=== PATIENT | male | born 1935 | race Caucasian/White ===

== ENCOUNTER 2016-08-20 17:06 | Emergency (ER) | payer MEDICARE ==
--- NOTE | 2016-08-20 18:09 | RAD ---
HISTORY: Shortness of breath COMPARISONS: September 16, 2013 VIEWS: 2: Frontal dual-energy and lateral views of the chest. FINDINGS: CARDIOMEDIASTINAL SILHOUETTE: The cardiomediastinal silhouette is normal. AZUL: The azul are normal. PLEURA: The costophrenic angles are sharp. No pleural abnormalities are noted. LUNG PARENCHYMA: There is hyperinflation with flattening of the diaphragm and expansion of the AP diameter of the chest. ABDOMEN: The upper abdomen is clear. There is no subphrenic gas. BONES AND SOFT TISSUES: No bone or soft tissue abnormalities are noted. OTHER: None. IMPRESSION: HYPERINFLATION, CONSISTENT WITH COPD. NO ACTIVE CARDIOPULMONARY DISEASE.
[2016-08-20 18:28] LABS: Hematocrit 44 % (42-52); Hemoglobin 14.5 g/dl (14.0-18.0); Mean Corpuscular HGB Conc 33 g/dl (31-36); Mean Corpuscular Hemoglobin 30 pg (27-31); Mean Corpuscular Volume 92 fL (80-94); Mean Platelet Volume 8 um3 (7.4-10.4); Red Blood Count 4.81 10^6/ul (4.0-5.4); Red Cell Distribution Width 14 % (10.5-15); White Blood Count 7.5 10^3/ul (3.5-10.8)
[2016-08-20 18:42] LABS: Albumin 4.2 g/dL (3.2-5.2); BUN/Creatinine Ratio 15.7 (8-20); EGFR African American 40.3 (>60); EGFR Non-African American 31.3 (>60); Globulin 3.7 g/dL (2-4); Potassium 4.6 mmol/L (3.5-5.0); Total Bilirubin 0.6 mg/dL (0.2-1.0); Total Protein 7.9 g/dL (6.4-8.9)
[2016-08-20 18:43] LABS: Troponin I 0.01 ng/mL (<0.04)
[2016-08-20] MEDS ORDERED: methylPREDNISolone 125 MG* 2 ML VIAL IV ONE (18:44)
[2016-08-20] MEDS ORDERED: Albuterol/Ipratropium NEB.SOL* Albuterol 2.5 MG/Ipratropium 0.5 MG 3 ML INH ONE (18:44)
[2016-08-20] MEDS ORDERED: Clarithromycin TAB* 500 MG PO ONE ×2 (20:55→20:56)
[2016-08-20 21:02] VITALS: BP 152/67
--- NOTE | 2016-08-20 22:05 | ED ---
Ella Howard Erika, scribed for Enrique Scales MD on 08/20/16 at 1743 . Shortness of Breath - HPI Summary HPI Summary: Patient is an 81-year-old male presenting to the ED with a CC of SOB. Patient reports chronic SOB, but states he has been more SOB in the past 2 days. Pt reports he has been taking Albuterol q4h for the past 2 days, which is more frequent than usual. Albuterol has been helping symptoms. Pt also took 1 puff of his asmanex inhaler yesterday and today, which did not seem to affect symptoms. Pt reports infrequent productive cough, but denies known fever. Hx asthma, COPD. Pt also had 2 stents placed last March, and breathing improved afterward. - History of Current Complaint Chief Complaint: EDShortnessOfBreath Time Seen by Provider: 08/20/16 17:14 Hx Obtained From: Patient, Family/Material Flow Analyst - Onset/Duration: Gradual Onset, Lasting Days - 2 days, Still Present Timing: Constant Current Severity: Moderate Dyspnea At: Rest Alleviating Factors: Bronchodilators Associated Signs & Symptoms: Cough (Productive) - Allergy/Home Medications Allergies/Adverse Reactions: Allergies Allergy/AdvReac Type Severity Reaction Status Date / Time No Known Allergies Allergy Verified 08/20/16 17:52 PMH/Surg Hx/FS Hx/Imm Hx Cardiovascular History: Reports: Hx Coronary Artery Disease Respiratory History: Reports: Hx Asthma, Hx Chronic Obstructive Pulmonary Disease (COPD) - Surgical History Surgery Procedure, Year, and Place: Cardiac stent Infectious Disease History: No Infectious Disease History: Denies: Traveled Outside the [place] in Last 30 Days - Family History Known Family History: Positive: Other - Colon [place] - Social History Occupation: Retired Lives: With Family Alcohol Use: Rare Hx Substance Use: No Substance Use Type: Reports: None Hx Tobacco Use: Yes Smoking Status (MU): Former Smoker Review of Systems Negative: Fever Positive: Shortness Of Breath, Cough Negative: Edema All Other Systems Reviewed And Are Negative: Yes Physical Exam Triage Information Reviewed: Yes Vital Signs On Initial Exam: Initial Vitals Temp Pulse Resp BP Pulse Ox 97.6 F 94 22 153/68 100 08/20/16 17:09 08/20/16 17:09 08/20/16 17:09 08/20/16 17:09 08/20/16 17:09 Vital Signs Reviewed: Yes Appearance: Positive: Well-Appearing, No Pain Distress Skin: Positive: Warm, Skin Color Reflects Adequate Perfusion, Dry Head/Face: Positive: Normal Head/Face Inspection Eyes: Positive: Normal ENT: Positive: Normal ENT inspection Neck: Positive: Supple, Nontender Respiratory/Lung Sounds: Positive: Breath Sounds Present, Wheezes - Diffuse expiratory Cardiovascular: Positive: RRR Abdomen Description: Positive: Nontender, Soft Bowel Sounds: Positive: Present Musculoskeletal: Positive: Normal. Negative: Edema Left, Edema Right Neurological: Positive: Normal Psychiatric: Positive: Affect/Mood Appropriate - Dewey Coma Scale Coma Scale Total: 15 Diagnostics - Vital Signs Vital Signs Temp Pulse Resp BP Pulse Ox 08/20/16 17:09 97.6 F 94 22 153/68 100 - Laboratory Lab Results: Lab Results 08/20/16 08/20/16 08/20/16 Range/Units 18:15 18:15 18:15 WBC 7.5 (3.5-10.8) 10^3/ul RBC 4.81 (4.0-5.4) 10^6/ul Hgb 14.5 (14.0-18.0) g/dl Hct 44 (42-52) % MCV 92 (80-94) fL MCH 30 (27-31) pg MCHC 33 (31-36) g/dl RDW 14 (10.5-15) % Plt Count 213 (150-450) 10^3/ul MPV 8 (7.4-10.4) um3 Neut % (Auto) 70.6 (38-83) % Lymph % (Auto) 11.6 L (25-47) % Lincoln % (Auto) 8.3 (1-9) % Eos % (Auto) 7.6 H (0-6) % Baso % (Auto) 1.9 (0-2) % Absolute Neuts (auto) 5.3 (1.5-7.7) 10^3/ul Absolute Lymphs (auto) 0.9 L (1.0-4.8) 10^3/ul Absolute Monos (auto) 0.6 (0-0.8) 10^3/ul Absolute Eos (auto) 0.6 (0-0.6) 10^3/ul Absolute Basos (auto) 0.1 (0-0.2) 10^3/ul Absolute Nucleated RBC 0.01 10^3/ul Nucleated RBC % 0.1 Sodium 136 (133-145) mmol/L Potassium 4.6 (3.5-5.0) mmol/L Chloride 103 (101-111) mmol/L Carbon Dioxide 26 (22-32) mmol/L Anion Gap 7 (2-11) mmol/L BUN 32 H (6-24) mg/dL Creatinine 2.04 H (0.67-1.17) mg/dL Est GFR ( Amer) 40.3 (>60) Est GFR (Non-Af Amer) 31.3 (>60) BUN/Creatinine Ratio 15.7 (8-20) Glucose 105 H (70-100) mg/dL Lactic Acid 1.0 (0.5-2.0) mmol/L Calcium 10.0 (8.6-10.3) mg/dL Total Bilirubin 0.60 (0.2-1.0) mg/dL AST 33 (13-39) U/L ALT 12 (7-52) U/L Alkaline Phosphatase 60 (34-104) U/L Troponin I 0.01 (<0.04) ng/mL B-Natriuretic Peptide ( - 100) pg/mL Total Protein 7.9 (6.4-8.9) g/dL Albumin 4.2 (3.2-5.2) g/dL Globulin 3.7 (2-4) g/dL Albumin/Globulin Ratio 1.1 (1-3) 05/20/17 Range/Units 18:15 WBC (3.5-10.8) 10^3/ul RBC (4.0-5.4) 10^6/ul Hgb (14.0-18.0) g/dl Hct (42-52) % MCV (80-94) fL MCH (27-31) pg MCHC (31-36) g/dl RDW (10.5-15) % Plt Count (150-450) 10^3/ul MPV (7.4-10.4) um3 Neut % (Auto) (38-83) % Lymph % (Auto) (25-47) % Lincoln % (Auto) (1-9) % Eos % (Auto) (0-6) % Baso % (Auto) (0-2) % Absolute Neuts (auto) (1.5-7.7) 10^3/ul Absolute Lymphs (auto) (1.0-4.8) 10^3/ul Absolute Monos (auto) (0-0.8) 10^3/ul Absolute Eos (auto) (0-0.6) 10^3/ul Absolute Basos (auto) (0-0.2) 10^3/ul Absolute Nucleated RBC 10^3/ul Nucleated RBC % Sodium (133-145) mmol/L Potassium (3.5-5.0) mmol/L Chloride (101-111) mmol/L Carbon Dioxide (22-32) mmol/L Anion Gap (2-11) mmol/L BUN (6-24) mg/dL Creatinine (0.67-1.17) mg/dL Est GFR ( Amer) (>60) Est GFR (Non-Af Amer) (>60) BUN/Creatinine Ratio (8-20) Glucose (70-100) mg/dL Lactic Acid (0.5-2.0) mmol/L Calcium (8.6-10.3) mg/dL Total Bilirubin (0.2-1.0) mg/dL AST (13-39) U/L ALT (7-52) U/L Alkaline Phosphatase (34-104) U/L Troponin I (<0.04) ng/mL B-Natriuretic Peptide 74 ( - 100) pg/mL Total Protein (6.4-8.9) g/dL Albumin (3.2-5.2) g/dL Globulin (2-4) g/dL Albumin/Globulin Ratio (1-3) Result Diagrams: 08/20/16 18:15 08/20/16 18:15 Lab Statement: Any lab studies that have been ordered have been reviewed, and results considered in the medical decision making process. - Radiology CXR Radiology Interpretation Completed By: Radiologist - IMPRESSION: HYPERINFLATION , CONSISTENT WITH COPD. NO ACTIVE CARDIOPULMONARY DISEASE. - EKG 17:45 Cardiac Rate: NL - at 78 bpm EKG Rhythm: Sinus Rhythm Re-Evaluation - Re-Evaluation First Eval Re-Evaluation Time: 18:58 Change: Worse Comment: Pt having increased SOB. Nebulizer ordered Second Eval Re-Evaluation Time: 20:57 Change: Improved Comment: Discussed labs. Will discharge at this time Course/Dx - Course Course Of Treatment: Mr. Marti came in with a cough and the C/O having to use his inhaler more often and still felling SOB. His cough is productive of yellow phlegm. His W/U was negative for pneumonia and he improved a lot here with a duoneb and solumedrol. I will treat him as an outpatient - Diagnoses Provider Diagnoses: Bronchitis with bronchospasm Discharge - Discharge Plan Condition: Stable Disposition: HOME Prescriptions: Clarithromycin TAB* [Biaxin TAB*] 500 mg PO BID #20 tab Methylprednisolone [Medrol Dosepak 4 MG*] 4 mg PO .SEE PRIYANK INSTRUCTION #1 tab Patient Education Materials: Asthma (ED), Acute Bronchitis (ED) Referrals: Estrellita Long MD [Primary Care Provider] - 2 Days The documentation as recorded by the Ella hernandez Erika accurately reflects the service I personally performed and the decisions made by me, Enrique Scales MD.
== END 2016-08-20 21:17 | disposition home or self-care (01) ==
LOC: ED 17:06
DX: J44.0 Chronic obstructive pulmonary disease with (acute) lower respiratory infection (principal); J20.9 Acute bronchitis, unspecified; Z87.891 Personal history of nicotine dependence; I25.10 Atherosclerotic heart disease of native coronary artery without angina pectoris
CPT/HCPCS: 36415; 71020; 80053; 83605; 83880; 84484; 85025; 93005; 94640; 96374; 99282; A9270-GY; J2930

== ENCOUNTER 2017-01-11 17:21 | Emergency (ER) | payer MEDICARE ==
[2017-01-11 20:28] LABS: Urine Bacteria Absent (Absent); Urine Bilirubin Negative (Negative); Urine Glucose Negative (Negative); Urine Nitrite Negative (Negative)
[2017-01-11] MEDS ORDERED: Ciprofloxacin TAB* 500 MG PO ONE (20:52)
[2017-01-11] MEDS ORDERED: Tamsulosin CAP* 0.4 MG PO ONE (20:52)
[2017-01-11 21:07] VITALS: BP 147/62
--- NOTE | 2017-01-27 13:15 | ED ---
Sayda Howard Thomas, scribed for Enrique Scales MD on 01/11/17 at 1922 . GI/ HPI - HPI Summary HPI Summary: The patient is an 81 y/o F presenting to the ED c/o inability to void that began yesterday evening. Arrival to the ED, the patient was only able to dribble a small amount of urine. Nursing scanned the patients bladder after he voided a scant amount of urine and found that there was still greater than 300 mL of fluid in the bladder. Nursing then attempted to place a catheter without success and the patient declined a coude catheterization at that time. Now, the patient c/o hematuria as he voids a scant amount. He still is unable to void as normal. He rates his pain 7/10. He is accompanied by his . - History of Current Complaint Chief Complaint: EDUrogenitalProblems Time Seen by Provider: 01/11/17 19:03 Stated Complaint: UNABLE TO URINATE Hx Obtained From: Patient, Family/Fire Extinguisher Repairer Onset/Duration: Started Days Ago - onset yesterday, Still Present Timing: Constant Pain Intensity: 7 Associated Signs and Symptoms: Positive: Other: - Inability to void, hematuria. Negative: Fever Aggravating Factor(s): Nothing Alleviating Factor(s): Nothing - Allergy/Home Medications Allergies/Adverse Reactions: Allergies Allergy/AdvReac Type Severity Reaction Status Date / Time No Known Allergies Allergy Verified 08/20/16 17:52 PMH/Surg Hx/FS Hx/Imm Hx Previously Healthy: No Cardiovascular History: Reports: Hx Coronary Artery Disease Respiratory History: Reports: Hx Asthma, Hx Chronic Obstructive Pulmonary Disease (COPD) - Surgical History Surgery Procedure, Year, and Place: Cardiac stent Infectious Disease History: No Infectious Disease History: Denies: Traveled Outside the [place] in Last 30 Days - Family History Known Family History: Positive: Other - Colon [place] - Social History Alcohol Use: Rare Hx Substance Use: No Substance Use Type: Reports: None Hx Tobacco Use: Yes Smoking Status (MU): Former Smoker Review of Systems Negative: Fever Positive: hematuria, other - Inability to void All Other Systems Reviewed And Are Negative: Yes Physical Exam Triage Information Reviewed: Yes Vital Signs On Initial Exam: Initial Vitals Temp Pulse Resp BP Pulse Ox 97.7 F 67 20 158/54 100 01/11/17 17:34 01/11/17 17:34 01/11/17 17:34 01/11/17 17:34 01/11/17 17:34 Vital Signs Reviewed: Yes Appearance: Positive: Well-Appearing, No Pain Distress Skin: Positive: Warm, Skin Color Reflects Adequate Perfusion, Dry Head/Face: Positive: Normal Head/Face Inspection Eyes: Positive: Normal ENT: Positive: Normal ENT inspection Neck: Positive: Supple, Nontender Respiratory/Lung Sounds: Positive: Clear to Auscultation, Breath Sounds Present Cardiovascular: Positive: RRR Abdomen Description: Positive: Nontender, Soft Bowel Sounds: Positive: Present Musculoskeletal: Positive: Normal Neurological: Positive: Normal Psychiatric: Positive: Normal, Affect/Mood Appropriate Diagnostics - Vital Signs Vital Signs Temp Pulse Resp BP Pulse Ox 01/11/17 17:34 97.7 F 67 20 158/54 100 - Laboratory Lab Results: Lab Results 01/11/17 Range/Units 20:00 Urine Color Red A Urine Appearance Cloudy Urine pH 6.0 (5-9) Ur Specific Clubb 1.011 (1.010-1.030) Urine Protein 2+(100 mg/dl) H (Negative) Urine Ketones Negative (Negative) Urine Blood 3+ H (Negative) Urine Nitrate Negative (Negative) Urine Bilirubin Negative (Negative) Urine Urobilinogen Negative (Negative) Ur Leukocyte Esterase 1+ H (Negative) Urine WBC (Auto) 3+(>20/hpf) H (Absent) Urine RBC (Auto) 3+(>10/hpf) H (Absent) Ur Squamous Epith Cells Present H (Absent) Amorphous Crystals Present H (Absent) Urine Bacteria Absent (Absent) Urine Glucose Negative (Negative) Lab Statement: Any lab studies that have been ordered have been reviewed, and results considered in the medical decision making process. GIGU Course/Dx - Course Course Of Treatment: Mr. Marti presented with the feeling of urgency and incomplete voiding. Prior to my seeing him, a aggarwal was attempted and caused hime a good deal of pain and gave him hematuria and dysuria. A rectal exam revealed a large firm prostate that was nontender. U/A was equivocal with RBCs and WBCs. e absolutely refuses to have a catheter and is managing to get some urine out. I checked the bladder scan and it read in the high 200's each time. I will cover him with antibiotics and he will return of he becomes unable to pass any urine. - Diagnoses Provider Diagnoses: BPH (benign prostatic hyperplasia), Urinary retention Discharge - Discharge Plan Condition: Stable Disposition: HOME Prescriptions: Ciprofloxacin TAB* [Cipro Tab*] 500 mg PO BID #10 tab Tamsulosin CAP* [Flomax CAP*] 0.4 mg PO DAILY #7 cap Patient Education Materials: Urinary Retention in Men (ED) Referrals: Estrellita Long MD [Primary Care Provider] - The documentation as recorded by the Sayda hernandez Thomas accurately reflects the service I personally performed and the decisions made by Yordy villasenor Richard L, MD.
== END 2017-01-11 21:06 | disposition home or self-care (01) ==
LOC: ED 17:21
DX: N40.0 Benign prostatic hyperplasia without lower urinary tract symptoms (principal); R33.9 Retention of urine, unspecified; R31.9 Hematuria, unspecified; I25.10 Atherosclerotic heart disease of native coronary artery without angina pectoris; Z95.5 Presence of coronary angioplasty implant and graft; J44.9 Chronic obstructive pulmonary disease, unspecified; Z87.891 Personal history of nicotine dependence
CPT/HCPCS: 81003; 81015; 87086; 99284; A9270-GY

== ENCOUNTER 2017-08-11 09:19 | Emergency (ER) | payer MEDICARE ==
[2017-08-11 10:35] LABS: ABS Basophils 0.1 10^3/ul (0-0.2); ABS Eosinophils 0 10^3/ul (0-0.6); ABS Lymphocytes 1.5 10^3/ul (1.0-4.8); ABS Monocytes 0.5 10^3/ul (0-0.8); ABS Neutrophils 6.5 10^3/ul (1.5-7.7); ABS Nucleated RBC 0 10^3/ul; Eosinophil % 0.2 % (0-6); Hematocrit 39 % (42-52); Lymphocyte % 17.6 % (25-47); Mean Corpuscular HGB Conc 33 g/dl (31-36); Mean Corpuscular Hemoglobin 30 pg (27-31); Mean Corpuscular Volume 90 fL (80-94); Mean Platelet Volume 8.4 um3 (7.4-10.4); Nucleated Red Blood Cells % 0; Platelet Count 258 10^3/ul (150-450); Red Blood Count 4.35 10^6/ul (4.0-5.4); Red Cell Distribution Width 14 % (10.5-15); White Blood Count 8.7 10^3/ul (3.5-10.8)
[2017-08-11] MEDS ORDERED: Acetaminophen TAB* 325 MG PO ONE (10:44)
[2017-08-11 10:52] LABS: EGFR Non-African American 22.1 (>60)
--- NOTE | 2017-08-11 11:13 | RAD ---
INDICATION: RIGHT flank pain since last evening. Nausea and vomiting. Diffuse lower abdominal pain. Suprapubic catheter discomfort. Negative for history of urolithiasis. COMPARISON: August 20, 2016 chest radiograph. TECHNIQUE: Multidetector CT images were obtained from the lung bases to the ischial tuberosities. Evaluation of the viscera is limited without IV contrast. Multiplanar reformation. REPORT: Images through the inferior thorax are remarkable for mild bilateral bronchiectasis. Calcified granuloma at the posterior basal segment of the LEFT lower lobe. Negative for pleural effusions. Negative for CT abnormality of the liver. Solitary small dependent calcified gallstone visualized without additional CT abnormality of the gallbladder. Moderate fatty replacement of the pancreas without suspicious finding of the pancreas. Negative for biliary dilatation. Small splenule approximates the anterior lateral aspect of the unremarkable dominant spleen. Small sliding type hiatal hernia. No additional abnormality of the upper GI, small bowel, or appendix visualized lateral to the cecum. Severe colonic diverticulosis without findings of diverticulitis. Negative for ascites or free air. Small RIGHT larger than LEFT fat-containing inguinal hernias without inflammatory change. Normal adrenal glands. Mild RIGHT and moderate LEFT renal cortical atrophy. Few simple appearing renal cysts with dominant 2 cm cyst at the upper pole LEFT kidney. Moderate RIGHT hydroureteronephrosis with dilatation of the ureter down to the ureterovesicular junction without visualized obstructing stone or focal lesion. 1 mm calyceal stone midpole RIGHT kidney. Negative for LEFT hydronephrosis. Phlebolith noted adjacent to the distal LEFT ureter. Suprapubic catheter in place. Urinary bladder volume estimated at 140 mL. Severe prostatomegaly. Grossly symmetric appearance of the seminal vesicles. Negative for lymphadenopathy. Extensive calcific plaque of the abdominal aorta and iliac arteries. Negative for aneurysm of the abdominal aorta. 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 Negative for suspicious osseous lesions. Advanced lumbar sacral spine degenerative spondylosis at L4-L5 and L5-S1. Degenerative spondylosis and facet joint osteoarthritis results in moderate acquired central canal stenosis at L4-L5 however assessment with CT is limited. IMPRESSION: 1. Mild bronchiectasis at the lung bases. 2. Cholelithiasis. 3. Small sliding-type hiatal hernia. Extensive colonic diverticulosis without findings of diverticulitis. Normal appendix documented. 4. Moderate RIGHT hydroureteronephrosis with dilatation of the ureter down to the ureterovesicular junction without visualized obstructing stone or focal lesion. Negative for LEFT hydronephrosis. Suprapubic catheter in place. Urinary bladder volume estimated at 140 mL. Severe prostatomegaly. 5. Peripheral vascular disease. 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
[2017-08-11 11:19] LABS: Urine Appearance Cloudy; Urine Blood 1+ (Negative); Urine Color Yellow; Urine Ketones Trace (Negative); Urine Protein 3+(>=500 mg/dL) (Negative); Urine Specific Gravity 1.014 (1.010-1.030); Urine Urobilinogen Negative (Negative)
[2017-08-11] MEDS ORDERED: Morphine INJ* 2 MG/ML 1 ML CARPUJECT IV ONE (11:46)
[2017-08-11] MEDS ORDERED: Ondansetron INJ* 2 MG/ML VIAL IV ONE (11:46)
[2017-08-11] MEDS ORDERED: Morphine VIAL* 4 MG/ML VIAL (1 ml vial) IV ONE ×2 (11:48→11:53)
[2017-08-11] MEDS ORDERED: Ondansetron ODT TAB* 4 MG ONE (11:48)
[2017-08-11] MEDS ORDERED: Ondansetron ODT TAB* 4 MG PO ONE (11:53)
--- NOTE | 2017-08-11 15:00 | ED ---
Gregg Howard Angela, scribed for Benito Killian MD on 08/11/17 at 0941 . Abdominal Pain/Male - HPI Summary HPI Summary: This pt is a 82 y/o male presenting to [facility] c/o right sided flank pain since last night. Pt additionally reports nausea, vomiting, diffuse lower abdominal pain from suprapubic catheter. He states he was vomiting all night last night. Pt states he just returned from [place] and had his catheter placed there. A catheter (16) was placed because he had difficulty voiding due to enlarged prostate. His catheter needs to be changed every 6 weeks and the one he has in right now has been in for 6 weeks now. Pt notes his catheter has been draining well. Last night he had 500 CC of urine in his bag. Denies fever, chills, hematuria. He has not taken any pain medications at home. Pt notes he has only had his catheter changed once and it was in the hospital where he had IV medications given to him. He was supposed to go to [facility] to change his catheter today but due to pain he came to the ED. Pt states his insurance will only take [facility]. He denies hx of kidney stones. Pt's PCP is Dr. Long. Pt has stopped taking aspirin and statin (almost paralyzed him). PMHx includes stage 3 renal disease. - History of Current Complaint Chief Complaint: EDFlankPain Stated Complaint: ABD & FLANK PAIN,VOMITING Hx Obtained From: Patient, Family/Gateman - Onset/Duration: Lasting Hours, Still Present Timing: Lasting Days - 1 Pain Intensity: 9 Pain Scale Used: 0-10 Numeric Location: Suprapubic, Flank - right Radiates: No Aggravating Factor(s): Nothing Alleviating Factor(s): Nothing Associated Signs And Symptoms: Negative: Fever, Urinary Symptoms - hematuria - Allergies/Home Medications Allergies/Adverse Reactions: Allergies Allergy/AdvReac Type Severity Reaction Status Date / Time Xzyiicg-Umn-Vzg Reductase Allergy Numbness Verified 08/11/17 09:26 Inhibitor Home Medications: Home Medications Albuterol HFA INHALER* [Ventolin HFA Inhaler*] 1 - 2 puff INH Q4H PRN 08/11/17 [ History Confirmed 08/11/17] Aspirin EC TAB* [Ecotrin EC Low Dose 81 MG*] 81 mg PO DAILY 08/11/17 [History Confirmed 08/11/17] Glucosam/Chondr/Collagn/Hyalur [Th Glucosamine/Chondroiti] 1 cap PO DAILY [History Confirmed 08/11/17] Metoprolol Succinate XL TAB* [Toprol XL TAB*] 50 mg PO DAILY 08/11/17 [History Confirmed 08/11/17] Multivitamins/Minerals TAB* [Theragran/minerals TAB*] 1 tab PO DAILY 08/11/17 [ History Confirmed 08/11/17] Nitroglycerin TAB 0.4 MG* 0.4 mg SL Q5M PRN 08/11/17 [History Confirmed 08/11/17 ] Psyllium PRIYANK* [Metamucil PRIYANK*] 0.5 teasp PO EVERY OTHER DAY 08/11/17 [History Confirmed 08/11/17] PMH/Surg Hx/FS Hx/Imm Hx Cardiovascular History: Reports: Hx Coronary Artery Disease, Other Cardiovascular Problems/Disorders - coronary angioplasty Respiratory History: Reports: Hx Asthma, Hx Chronic Obstructive Pulmonary Disease (COPD) History: Reports: Hx Renal Disease - stage 3 Denies: Hx Kidney Stones - Surgical History Surgery Procedure, Year, and Place: Cardiac stent Infectious Disease History: No Infectious Disease History: Denies: Traveled Outside the [place] in Last 30 Days - Family History Known Family History: Positive: Other - Colon CA - Social History Alcohol Use: Rare Hx Substance Use: No Substance Use Type: Reports: None Hx Tobacco Use: Yes Smoking Status (MU): Former Smoker Review of Systems Negative: Fever, Chills Negative: Erythema Negative: Sore Throat Negative: Chest Pain Negative: Shortness Of Breath, Cough Positive: Abdominal Pain, Vomiting, Nausea Positive: flank pain - right. Negative: dysuria, hematuria Negative: Myalgia, Edema Negative: Rash Neurological: Other - NEG: dizziness All Other Systems Reviewed And Are Negative: Yes Physical Exam - Summary Physical Exam Summary: Constitutional: Well-developed, Well-nourished, Alert. (-) Distressed Skin: Warm, Dry HENT: Normocephalic; Atraumatic Eyes: Conjunctiva normal Neck: Musculoskeletal ROM normal neck. (-) JVD, (-) Stridor, (-) Tracheal deviation Cardio: Rhythm regular, rate normal, Heart sounds normal; Intact distal pulses; The pedal pulses are 2+ and symmetric. Radial pulses are 2+ and symmetric. (-) Murmur Pulmonary/Chest wall: Effort normal. (-) Respiratory distress, (-) Wheezes, (-) Rales Abd: Soft, (-) Tenderness, (-) Distension, (-) Guarding, (-) Rebound Musculoskeletal: (-) Edema Lymph: (-) Cervical adenopathy Neuro: Alert, Oriented x3 Psych: Mood and affect Normal Triage Information Reviewed: Yes Vital Signs On Initial Exam: Initial Vitals Temp Pulse Resp BP Pulse Ox 97.5 F 88 16 162/65 100 08/11/17 09:22 08/11/17 09:22 08/11/17 09:22 08/11/17 09:22 08/11/17 09:22 Vital Signs Reviewed: Yes Procedures - Procedure Summary Procedure Summary: Urinary Catheter Insertion Procedure Note: Inserted a 16 Divehi suprapubic urinary catheter using sterile technique and Betadine. Diagnostics - Vital Signs Vital Signs Temp Pulse Resp BP Pulse Ox 08/11/17 09:22 97.5 F 88 16 162/65 100 - Laboratory Result Diagrams: 08/11/17 10:13 08/11/17 10:13 Lab Statement: Any lab studies that have been ordered have been reviewed, and results considered in the medical decision making process. - CT Abdomen/Pelvis CT CT Interpretation: Positive (See Comments) - IMPRESSION: 1. Mild bronchiectasis at the lung bases. 2. Cholelithiasis. 3. Small sliding-type hiatal hernia. Extensive colonic diverticulosis without findings of diverticulitis. Normal appendix documented. 4. Moderate RIGHT hydroureteronephrosis with dilatation of the ureter down to the ureterovesicular junction without visualized obstructing stone or focal lesion. Negative for LEFT hydronephrosis. Suprapubic catheter in place. Urinary bladder volume estimated at 140 mL. Severe prostatomegaly. 5. Peripheral vascular disease. 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 Killian has reviewed this radiology report. CT Interpretation Completed By: Radiologist Abdominal Pain Fem Course/Dx - Course Assessment/Plan: Pt is a 82 y/o male, with hx of stage 3 kidney disease, who presents with right sided flank pain since last night. He states he had recent placement of suprapubic catheter. Pt additionally reports nausea, vomiting, diffuse lower abdominal pain from suprapubic catheter. Lab results shows hemoglobin of 13, hematocrit of 39, BUN of 31, creatinine of 2.76, CRP of 7.64. Abdomen/Pelvis CT shows 1. Mild bronchiectasis at the lung bases. 2. Cholelithiasis. 3. Small sliding-type hiatal hernia. Extensive colonic diverticulosis without findings of diverticulitis. Normal appendix documented. 4. Moderate RIGHT hydroureteronephrosis with dilatation of the ureter down to the ureterovesicular junction without visualized obstructing stone or focal lesion. Negative for LEFT hydronephrosis. Suprapubic catheter in place. Urinary bladder volume estimated at 140 mL. Severe prostatomegaly. 5. Peripheral vascular disease. 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 In the ED course the pt was given Tylenol, Zofran, morphine. Pt with constant flank pain since yesterday. Pt has signs of ureteral obstruction in CT, hydronephrosis, and hydroureteronephrosis. Given pt' s chronic renal failure, there is a concern of high risk for worsening renal failure. He could require retrograde cystourethrogram. There is no urology service transportation aide at [facility]. After much discussion, the pt is agreeable to transfer to [facility]. I discussed with Dr. Camacho, provider at [facility], who has agreed to accept the pt for transfer to [facility]. - Diagnoses Differential Diagnosis/HQI/PQRI: Other - muscle strain vs pyelonephritis vs kidney stone Provider Diagnoses: Ureteral obstruction - Provider Notifications Discussed Care Of Patient With: Jeet Burgos Time Discussed With Above Provider: 12:28 Instructed by Provider To: Other - I discussed pt care with Dr. Burgos, urologist , who recommends transferring the pt. [13:25] I discussed with Dr. Camacho, provider at [facility], who has agreed to accept the pt for transfer to [facility]. Discharge - Sign-Out/Discharge Documenting (check all that apply): Discharge/Admit/Transfer - Transfer - Discharge Plan Condition: Stable Disposition: TRANS HIGHER LVL OF CARE FAC Discharge Disposition Comment: [facility] Referrals: Estrellita Long MD [Primary Care Provider] - The documentation as recorded by the Gregg hernandez Angela accurately reflects the service I personally performed and the decisions made by me, Benito Killian MD.
[2017-08-11 16:08] VITALS: BP 152/71
--- NOTE | 2017-08-14 07:39 | PN ---
Progress Note - Progress Note Date of Service: 08/11/17 Note: Pt. seen in ER 08/11 and traferred to [facility] for urology care. Has suprapubic catheter. Urine culture today is growing >[id number] Klebsiella, will fax culture to [facility].
--- NOTE | 2017-08-15 08:52 | ED ---
Progress - Progress Note Progress Note: Patient's preliminary urine culture reveals greater than 100,000 Klebsiella pneumoniae and 75-100,000 enterococcus Faecalis. Organism is pansensitive with the exception of ampicillin which is resistant. Patient was transferred to [facility]. Will fax results. transportation clerk aware. Course/Dx - Diagnoses Provider Diagnoses: Ureteral obstruction - Provider Notifications Time Discussed With Above Provider: 12:28 Instructed by Provider To: Other - I discussed pt care with Dr. Burgos, urologist , who recommends transferring the pt. [13:25] I discussed with Dr. Camacho, provider at [facility], who has agreed to accept the pt for transfer to [facility]. Discharge - Sign-Out/Discharge Documenting (check all that apply): Post-Discharge Follow Up - Discharge Plan Condition: Stable Disposition: TRANS [facility] CARE FAC Referrals: Estrellita Long MD [Primary Care Provider] - - Billing Disposition and Condition Condition: STABLE Disposition: EMTALA
== END 2017-08-11 16:08 | disposition short-term general hospital (02) ==
LOC: ED 09:19
DX: N13.5 Crossing vessel and stricture of ureter without hydronephrosis (principal); B96.1 Klebsiella pneumoniae [K. pneumoniae] as the cause of diseases classified elsewhere; Z16.11 Resistance to penicillins; K80.20 Calculus of gallbladder without cholecystitis without obstruction; K44.9 Diaphragmatic hernia without obstruction or gangrene; N40.1 Benign prostatic hyperplasia with lower urinary tract symptoms; I25.10 Atherosclerotic heart disease of native coronary artery without angina pectoris; Z95.5 Presence of coronary angioplasty implant and graft; J44.9 Chronic obstructive pulmonary disease, unspecified; N18.3 Chronic kidney disease, stage 3 (moderate); Z87.891 Personal history of nicotine dependence
CPT/HCPCS: 36415; 51702; 74176; 80053; 81003; 81015; 83605; 83690; 85025; 86140; 87077; 87086; 87186; 96374; 99284; A9270-GY; J2270

== ENCOUNTER 2017-11-21 13:59 | Emergency (ER) | payer MEDICARE ==
[2017-11-21] MEDS ORDERED: HYDROmorphone INJ* 2 MG/ML CARPUJECT SYRINGE IV SLOW PU ONE (14:38)
[2017-11-21] MEDS ORDERED: NS 0.9% 1000 ML* 1,000 ML IV ONE (14:38)
--- NOTE | 2017-11-21 15:22 | ED ---
Complex/Multi-Sys Presentation - HPI Summary HPI Summary: 82 y/o male presents to ED c/o increasing weakness s/p nephrostomy tube placement yesterday at [facility]. Associated sx: chills and tremors yesterday, body aches, SOB with exertion, LE numbness. Pt states "I ache all over" today. Sx not alleviated by anything. PMHx prostate CA (dx several weeks ago). 08/11/17 nephrostomy tube originally placed b/c of blockage in the kidney. Urologist Dr. Li ([facility]) - [phone]. - History Of Current Complaint Chief Complaint: EDGeneral Hx Obtained From: Patient Onset/Duration: Lasting Days, Still Present Timing: Constant Associated Signs And Symptoms: Positive: Weakness, SOB, Other - chills, shakes, pain - Allergies/Home Medications Allergies/Adverse Reactions: Allergies Allergy/AdvReac Type Severity Reaction Status Date / Time Enqjrxd-Buw-Zct Reductase Allergy Numbness Verified 11/21/17 14:02 Inhibitor Home Medications: Home Medications Bicalutamide (NF) [Casodex (NF)] 50 mg PO DAILY 11/21/17 [History Confirmed ] Glucosamine CAP (NF) 1 cap PO DAILY 11/21/17 [History Confirmed 11/21/17] Leuprolide Acetate [Lupron Depot-Ped] 30 mg IM MONTHLY 11/21/17 [History Confirmed 11/21/17] PMH/Surg Hx/FS Hx/Imm Hx Previously Healthy: No Cardiovascular History: Reports: Hx Coronary Artery Disease, Other Cardiovascular Problems/Disorders - coronary angioplasty Respiratory History: Reports: Hx Asthma, Hx Chronic Obstructive Pulmonary Disease (COPD) History: Reports: Hx Renal Disease - stage 3 Denies: Hx Kidney Stones - Surgical History Surgery Procedure, Year, and Place: Cardiac stent Infectious Disease History: No Infectious Disease History: Denies: Traveled Outside the [place] in Last 30 Days - Family History Known Family History: Positive: Other - Colon CA - Social History Alcohol Use: Rare Hx Substance Use: No Substance Use Type: Reports: None Hx Tobacco Use: Yes Smoking Status (MU): Former Smoker Review of Systems Positive: Chills, Other - shakes Eyes: Negative ENT: Negative Cardiovascular: Negative Positive: Shortness Of Breath Gastrointestinal: Negative Genitourinary: Negative Positive: Myalgia Skin: Negative Positive: Weakness, Numbness - LE Psychological: Normal All Other Systems Reviewed And Are Negative: No Physical Exam - Summary Physical Exam Summary: Alert, conversive, nontoxic appearing Skin: Warm, dry, no mottling, no rashes, no contusions HEENT: EOMI, PERRL, dry mucous membranes Neck: No masses on the neck, supple Respiratory: Clear to auscultation, breath sounds present, no rales, no rhonchi , no wheezes Cardiovascular: RRR, pulses are symmetrical in both lower and upper extremities Abdomen: Soft, lower ABD tenderness. Suprapubic catheter and nephrostomy tube placed on the R, urine in both bags. Bowel Sounds: Present Musculoskeletal: No CVA tenderness, no obvious deformity, moving all extremities in a grossly normal manner Neurological: A&Ox3, CN II-XII Intact, moving all extremities symmetrically. Slightly weak. Psychiatric: Normal affect and mood Triage Information Reviewed: Yes Vital Signs On Initial Exam: Initial Vitals Temp Pulse Resp BP Pulse Ox 97.5 F 90 17 128/50 96 11/21/17 14:00 11/21/17 14:00 11/21/17 14:00 11/21/17 14:00 11/21/17 14:00 Vital Signs Reviewed: Yes Diagnostics - Vital Signs Vital Signs Temp Pulse Resp BP Pulse Ox 11/21/17 15:02 24 11/21/17 14:00 97.5 F 90 17 128/50 96 - Laboratory Result Diagrams: 11/21/17 15:39 11/21/17 15:39 Lab Statement: Any lab studies that have been ordered have been reviewed, and results considered in the medical decision making process. Re-Evaluation - Re-Evaluation 1 Re-Evaluation Time: 17:02 Comment: Discuss test results and findings. Discussed possiblity to admit. Re- exam, I noted decreased breath sounds and wheezes. Complex Multi-Symp Course/Dx Assessment/Plan: 82 y/o male presents to ED c/o severe pain and increasing weakness s/p nephrostomy tube placement yesterday at [place] by Dr. Li. Associated sx: chills and shakes. Pt's states that the pt was released to be under the care of Dr. Powell yesterday. Spoke with Dr. Burgos at 17:24. Reviewed the case with Dr. Burgos, he states that the patient does not appear to be in any crisis. He recommends we send urine for cultures from both the suprapubic and neph tube. He recommends giving Cipro 250 mg BID, hydrating IV, and d/c home with f/u at [facility] tomorrow. Spoke with Dr. Li @ 18: 12 who accepted the pt for transfer back to his care. Spoke with the pt's , who does not want for the pt to be transferred to [facility]. At this point I offered that I speak with the hospitalist for the possiblity of admission. Hospitalist would accept the patient, however, it is important to have urologic consultation. The urologist feels that patient can be discharged and needs to follow up with his current urologist. I once again discussed with the possibility of transfer to [facility] [place]. She does not want her transfered for admission and urologic evaluation there. She chose to leave against medical advice. I encouraged her to return if her is worrse or he is worse. I sent a prescription to the pharmacy for pt's uti. - Diagnoses Provider Diagnoses: UTI (urinary tract infection), Dehydration - Physician Notifications Discussed Care Of Patient With: Jeet Burgos Time Discussed With Above Provider: 17:24 Discharge - Sign-Out/Discharge Documenting (check all that apply): Patient Departure - Discharge Plan Condition: Guarded Disposition: AGAINST MEDICAL ADVICE Prescriptions: Ciprofloxacin TAB* [Cipro 250 MG Tab*] 250 mg PO BID #20 tab Patient Education Materials: Dehydration (ED), Acute Kidney Injury (DC), Urinary Tract Infection in Men (ED), Nephrostomy Tube Care (ED) Referrals: Estrellita Long MD [Primary Care Provider] - Additional Instructions: return if worse or any new symptoms. Please follow up with your urologist at [facility] tomorrow. Take tylenol for pain. - Billing Disposition and Condition Condition: GUARDED Disposition: Against Medical Advice - Attestation Statements Document Initiated by Scribe: Yes Documenting Scribe: Gunnar Dubose Provider For Whom Scribe is Documenting (Include Credential): Vielka Caruso MD Scribe Attestation: Gunnar Howard, scribed for Vielka Caruso MD on 11/23/17 at 1122. Scribe Documentation Reviewed: Yes Provider Attestation: The documentation as recorded by the scribe, Gunnar Dubose accurately reflects the service I personally performed and the decisions made by me, Vielka Caruso MD
[2017-11-21 15:45] LABS: Urine Appearance Turbid; Urine Blood 2+ (Negative); Urine Color Amber; Urine Ketones Negative (Negative); Urine Protein 2+(100 mg/dL) (Negative); Urine Red Blood Cell 3+(>10/hpf) (Absent); Urine Specific Gravity 1.021 (1.010-1.030); Urine Urobilinogen Negative (Negative); Urine White Blood Cell 3+(>20/hpf) (Absent)
[2017-11-21 15:46] LABS: Urine Appearance Cloudy; Urine Blood 2+ (Negative); Urine Color Yellow; Urine Ketones Negative (Negative); Urine Protein 2+(100 mg/dL) (Negative); Urine Red Blood Cell 3+(>10/hpf) (Absent); Urine Urobilinogen Negative (Negative); Urine White Blood Cell 3+(>20/hpf) (Absent)
[2017-11-21 15:47] LABS: ABS Basophils 0 10^3/ul (0-0.2); ABS Eosinophils 0.1 10^3/ul (0-0.6); ABS Lymphocytes 0.8 10^3/ul (1.0-4.8); ABS Monocytes 1.4 10^3/ul (0-0.8); ABS Nucleated RBC 0 10^3/ul; Eosinophil % 0.3 % (0-6); Hematocrit 33 % (42-52); Hemoglobin 10.9 g/dl (14.0-18.0); Lymphocyte % 4.7 % (25-47); Mean Corpuscular HGB Conc 33 g/dl (31-36); Mean Corpuscular Hemoglobin 29 pg (27-31); Mean Corpuscular Volume 89 fL (80-94); Mean Platelet Volume 7.5 um3 (7.4-10.4); Nucleated Red Blood Cells % 0; Platelet Count 238 10^3/ul (150-450); Red Blood Count 3.73 10^6/ul (4.00-5.40); Red Cell Distribution Width 15 % (10.5-15); White Blood Count 17.2 10^3/ul (3.5-10.8)
[2017-11-21] MEDS ORDERED: cefTRIAXone(*) 1 GM in NS 0.9% 50 ML* 50 ML IVPB ONE (16:56)
[2017-11-21] MEDS ORDERED: Ketorolac INJ* 30 MG/ML 1 ML VIAL IV PUSH ONE (18:06)
[2017-11-21 19:14] VITALS: BP 129/59
--- NOTE | 2017-11-22 09:19 | ED ---
Re-Evaluation - Re-Evaluation 1 Re-Evaluation Time: 17:02 Comment: Discuss test results and findings. Discussed possiblity to admit. Re- exam, I noted decreased breath sounds and wheezes. Course/Dx - Course Course Of Treatment: MARIE Tyson called me to inquire about yesterday 's visit. I told her that the patient had a white blood cell count of 17,000, was recommended for admission and IV antibiotics, needed to be transferred to [facility] for potential nephrostomy tube revision. The patient refused AGAINST MEDICAL ADVICE. The outpatient office is arranging emergent transport back to either [facility] or [facility] for continued treatment. I did not participate in the care of this patient, the patient was seen by Dr. Vielka Caruso. See her dictated note. - Provider Notifications Time Discussed With Above Provider: 17:24 Discharge - Sign-Out/Discharge Documenting (check all that apply): Patient Departure, Post-Discharge Follow Up - Discharge Plan Condition: Guarded Disposition: AGAINST MEDICAL ADVICE Prescriptions: Ciprofloxacin TAB* [Cipro 250 MG Tab*] 250 mg PO BID #20 tab Patient Education Materials: Dehydration (ED), Acute Kidney Injury (DC), Urinary Tract Infection in Men (ED), Nephrostomy Tube Care (ED) Referrals: Estrellita Long MD [Primary Care Provider] - Additional Instructions: return if worse or any new symptoms. Please follow up with your urologist at [facility] tomorrow. Take tylenol for pain. - Billing Disposition and Condition Condition: GUARDED Disposition: Against Medical Advice
== END 2017-11-21 19:42 | disposition left against medical advice (07) ==
LOC: ED 13:59
DX: N39.0 Urinary tract infection, site not specified (principal); E86.0 Dehydration; R53.1 Weakness; R06.02 Shortness of breath; Z87.891 Personal history of nicotine dependence
CPT/HCPCS: 36415; 80053; 81003; 81015; 83605; 83735; 84443; 85025; 87040; 87086; 96365; 99284; J0696; J1170; J1885